=== PATIENT | male | born 1975 | race Caucasian/White ===

== ENCOUNTER 2016-05-11 08:35 | Emergency (ER) | payer OTHER ==
[2016-05-11] MEDS ORDERED: ONDANSETRON 4 MG ORAL DISINTEGRATING TAB (S0181) As Ordered ONE (09:10)
[2016-05-11] MEDS ORDERED: IBUPROFEN 600 MG TAB As Ordered ONE (09:11)
[2016-05-11] MEDS ORDERED: ACETAMINOPHEN 325 MG TAB As Ordered ONE (09:11)
--- NOTE | 2016-05-11 09:31 | REP ---
CT Head without contrast HISTORY: Headache COMPARISON: None There is no intraparenchymal hemorrhage, acute infarct, mass or midline shift. The ventricular system is normal in appearance. There is no extra cerebral collection. There is no fracture. The visualized sinuses are clear. IMPRESSION: There is no intracranial lesion. Signed by Jean Sellers MD 05/11/2016 09:22 A
--- NOTE | 2016-05-11 09:54 | EDDOCDS ---
Physician Documentation [facility] Name: Giles Rich Age: 40 yrs Sex: Male : 1975 Arrival Date: 05/11/2016 Time: 08:35 Bed I2 / M2 Private MD: Disposition: 05/11/16 09:46 Discharged to Home/Self Care. Impression: Headache, Nausea. - Condition is Stable. - Discharge Instructions: General Headache Without Cause, Nausea, Adult. - Prescriptions for ZOFRAN ODT 4 mg Oral - dissolve 1 tablet by ORAL route 3-4 times daily As needed do not chew, do not swallow whole; 10 tablet. - Medication Reconciliation, Local Pharmacy Hours form. - Follow up: Emergency Department; When: As needed; Reason: Worsening of conditions. Follow up: THIEN Javed; When: Call to arrange an appointment; Reason: Wound/Symptom Recheck, Recheck today's complaints, Continuance of care. - Problem is new. - Symptoms are unchanged. - Notes: YOUR CT SCAN DID NOT SHOW ANY ABNORMALITIES. PLEASE FOLLOW UP WITH YOUR PRIMARY CARE PROVIDER IN THE NEXT FEW DAYS TO RECHECK YOUR SYMPTOMS. TYLENOL/MOTRIN DIRECTED FOR PAIN. Historical: - Allergies: Amoxicillin; - Home Meds: 1. none - PMHx: none; - PSHx: none; - Social history: Smoking status: Patient states was never smoker of tobacco. No barriers to communication noted, The patient speaks fluent [place] Citizen, Speaks appropriately for age. - Family history: Not pertinent. - : The pt / caregiver states he / she is not on anticoagulants. Home medication list is obtained from the patient. - Exposure Risk Screening:: None identified. Vital Signs: 05/11 08:46 BP 138 / 84; Pulse 80; Resp 16; Temp 98.2(TE); Pulse Ox 97% on R/A; Weight 86.18 kg / mlb1 189.99 lbs (R); Height 5 ft. 9 in. (175.26 cm) (R); Pain 6/10; 09:51 BP 124 / 74; Pulse 70; Resp 16; Temp 97.3(O); jmk 08:46 Body Mass Index 28.06 (86.18 kg, 175.26 cm) mlb1 MDM: 09:06 Acetaminophen Tablet 975 mg PO once ordered. dt4 09:06 Ibuprofen 600 mg PO once; GIVE WITH FOOD, THANK YOU. ordered. dt4 09:06 Ondansetron ODT Oral Disintegrating Tablet 4 mg PO once ordered. dt4 09:06 CT Head Without Contrast Ordered. EDMS 09:24 Financial registration complete. 09:29 [facility] Payment Agreement was scanned into [employer] and attached to record. lg Administered Medications: 09:20 Drug: Acetaminophen 975 mg [acetaminophen 325 mg tablet (3 tabs)] Route: PO; jmk 09:20 Drug: Ibuprofen 600 mg [ibuprofen 600 mg tablet (1 tabs)] Route: PO; ina 09:20 Drug: Ondansetron ODT 4 mg [ondansetron 4 mg disintegrating tablet (1 tabs)] Route: PO; ina Signatures: Dispatcher [employer] EDMS Dwayne Astorga,RN RN Charmaine Dowd, Tobias Reg lg Van Tejeda RN RN mlb1 Jaleesa Olivera PA-C PAWhitley dt4 The chart was reviewed and I authenticate all verbal orders and agree with the evaluation and treatment provided.Attachments: 09:29 [facility] Payment Agreement lg MTDD
--- NOTE | 2016-05-11 09:54 | EDDOCDS ---
Nurse's Notes [facility] Name: Giles Rich Age: 40 yrs Sex: Male : 1975 Arrival Date: 05/11/2016 Time: 08:35 Bed I2 / M2 Private MD: Diagnosis: Headache;Nausea Presentation: 05/11 08:42 Presenting complaint: Patient states: "Pretty steady" headache for the past couple mlb1 weeks intermittent nausea. This patient has no additional risk factors. Adult Sepsis Screening: The patient does not have new or worsening altered mentation. Patient's respiratory rate is less than 22. Systolic blood pressure is greater than 100. Patient has a qSOFA score of 0- Negative Sepsis Screen. Suicide/Homicide risk assessment- the patient denies having any suicidal and/or homicidal ideations and does not present with any other emotional, behavioral or mental health complaints. 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 Transition of care: patient was not received from another setting of care. 08:42 Acuity: HASEEB Level 4 mlb1 08:42 Method Of Arrival: Walkin/Carried/Asstd mlb1 Triage Assessment: 08:44 Headache History: This patient does not have a history of previous headaches. General: mlb1 Appears in no apparent distress, Behavior is appropriate for age, cooperative. Pain: Location: head Pain currently is 6 out of 10 on a pain scale. Also complains of nausea. Pt Declines HIV testing. Neurological: No deficits noted. Historical: - Allergies: Amoxicillin; - Home Meds: 1. none - PMHx: none; - PSHx: none; - Social history: Smoking status: Patient states was never smoker of tobacco. No barriers to communication noted, The patient speaks fluent Serbian, Speaks appropriately for age. - Family history: Not pertinent. - : The pt / caregiver states he / she is not on anticoagulants. Home medication list is obtained from the patient. - Exposure Risk Screening:: None identified. Screenin:55 Screening information is obtained from the patient. Fall risk: No risks identified. jmk Assistance ADL's: requires no assistance with activities of daily living. Abuse/DV Screen: The patient / caregiver reports he/she is: not in a situation that causes fear, pain or injury. Nutritional screening: No deficits noted. Advance Directives: Currently, there is no health care proxy. There is no active DNR order. There is a living will, There is no Power of Parent Partner. home support is adequate. Assessment: 08:54 General: Appears in no apparent distress. Neurological: Level of Consciousness is jmk awake, alert, Oriented to person, place, time, Denies weakness blurred vision dizziness, numbness photophobia. Cardiovascular: No deficits noted. Respiratory: No deficits noted. GI: No deficits noted. 09:51 General: Appears states pian is unchanged. remains neuro intact.. Pain: Pain currently jmk is 6 out of 10 on a pain scale. Vital Signs: 08:46 BP 138 / 84; Pulse 80; Resp 16; Temp 98.2(TE); Pulse Ox 97% on R/A; Weight 86.18 kg mlb1 (R); Height 5 ft. 9 in. (175.26 cm) (R); Pain 6/10; 09:51 BP 124 / 74; Pulse 70; Resp 16; Temp 97.3(O); jmk 08:46 Body Mass Index 28.06 (86.18 kg, 175.26 cm) [facility] Vitals: 08:46 Log In Time: May 11, 2016 at 08:30. b1 ED Course: 08:36 Patient visited by Charmaine Copeland Reg. lg 08:36 Patient moved to Waiting lg 08:42 Patient visited by Van Tejeda, RN. mlb1 08:44 Triage Initiated mlb1 08:47 Patient visited by Van Tejeda, RN. mlb1 08:48 Patient moved to / M2 mlb1 08:52 [facility] dt4 08:52 Reba oSuza MD is Attending Physician. dt4 08:52 Patient visited by Jaleesa Olivera PA-C. dt4 09:29 [facility] Payment Agreement was scanned into [employer] and attached to record. lg 09:45 Tegan [facility] is Referral Physician. dt4 09:51 The patient / caregiver is instructed regarding the plan of care and ED course. jmk 09:51 No IV's were initiated during this patient's visit. No procedures done that require k assistance. Administered Medications: 09:20 Drug: Acetaminophen 975 mg [acetaminophen 325 mg tablet (3 tabs)] Route: PO; ina 09:20 Drug: Ibuprofen 600 mg [ibuprofen 600 mg tablet (1 tabs)] Route: PO; danilok 09:20 Drug: Ondansetron ODT 4 mg [ondansetron 4 mg disintegrating tablet (1 tabs)] Route: PO; k Order Results: There are currently no results for this order. Outcome: 09:46 Discharge ordered by Provider. dt4 09:51 Discharge Assessment: Patient awake, alert and oriented x 3. No cognitive and/or jmk functional deficits noted. Patient verbalized understanding of disposition instructions. patient administered narcotics - no. The following High Risk Discharge criteria are identified: None. Discharged to home ambulatory. Condition: good. Discharge instructions given to patient, Instructed on discharge instructions, follow up and referral plans. medication usage, Demonstrated understanding of instructions, medications, Pt was receptive of discharge instructions/ teaching. CT Study completed. Property :Personal belongings accompany Pt. 09:53 Patient left the ED. ina Signatures: Dwayne Astorga,RN RN Charmaine Dowd Reg Reg lg Barney, Michael B RN RN mlJaleesa Rayo, PA-C PA-C dt4 VALERIE
--- NOTE | 2016-05-13 10:54 | EDDOCDS ---
Physician Documentation [facility] Name: Giles Rich Age: 40 yrs Sex: Male : 1975 Arrival Date: 05/11/2016 Time: 08:35 Bed I2 / M2 Private MD: Disposition: 05/11/16 09:46 Discharged to Home/Self Care. Impression: Headache, Nausea. - Condition is Stable. - Discharge Instructions: General Headache Without Cause, Nausea, Adult. - Prescriptions for ZOFRAN ODT 4 mg Oral - dissolve 1 tablet by ORAL route 3-4 times daily As needed do not chew, do not swallow whole; 10 tablet. - Medication Reconciliation, Local Pharmacy Hours form. - Follow up: Emergency Department; When: As needed; Reason: Worsening of conditions. Follow up: THI[facility] Javed; When: Call to arrange an appointment; Reason: Wound/Symptom Recheck, Recheck today's complaints, Continuance of care. - Problem is new. - Symptoms are unchanged. - Notes: YOUR CT SCAN DID NOT SHOW ANY ABNORMALITIES. PLEASE FOLLOW UP WITH YOUR PRIMARY CARE PROVIDER IN THE NEXT FEW DAYS TO RECHECK YOUR SYMPTOMS. TYLENOL/MOTRIN DIRECTED FOR PAIN. Historical: - Allergies: Amoxicillin; - Home Meds: 1. none - PMHx: none; - PSHx: none; - Social history: Smoking status: Patient states was never smoker of tobacco. No barriers to communication noted, The patient speaks fluent [place], Speaks appropriately for age. - Family history: Not pertinent. - : The pt / caregiver states he / she is not on anticoagulants. Home medication list is obtained from the patient. - Exposure Risk Screening:: None identified. Vital Signs: 05/11 08:46 BP 138 / 84; Pulse 80; Resp 16; Temp 98.2(TE); Pulse Ox 97% on R/A; Weight 86.18 kg / mlb1 189.99 lbs (R); Height 5 ft. 9 in. (175.26 cm) (R); Pain 6/10; 09:51 BP 124 / 74; Pulse 70; Resp 16; Temp 97.3(O); jmk 08:46 Body Mass Index 28.06 (86.18 kg, 175.26 cm) mlb1 MDM: 09:06 Acetaminophen Tablet 975 mg PO once ordered. dt4 09:06 Ibuprofen 600 mg PO once; GIVE WITH FOOD, THANK YOU. ordered. dt4 09:06 Ondansetron ODT Oral Disintegrating Tablet 4 mg PO once ordered. dt4 09:06 CT Head Without Contrast Ordered. EDMS : Financial registration complete. : [facility] Payment Agreement was scanned into [email or web address] and attached to record. 05/13 08:56 T-Sheet-- Draft Copy was scanned into [email or web address] and attached to record. lg Administered Medications: 05/11 09:20 Drug: Acetaminophen 975 mg [acetaminophen 325 mg tablet (3 tabs)] Route: PO; jmk 09:20 Drug: Ibuprofen 600 mg [ibuprofen 600 mg tablet (1 tabs)] Route: PO; ina 09:20 Drug: Ondansetron ODT 4 mg [ondansetron 4 mg disintegrating tablet (1 tabs)] Route: PO; ina Signatures: Dispatcher [employer] EDOK Dwayne Astorga RN RN Charmaine Dowd, Reg Reg Van Tejeda RN RN mlb1 Jaleesa Olivera, PA-C PAAnisaC dt4 The chart was reviewed and I authenticate all verbal orders and agree with the evaluation and treatment provided.Attachments: : [facility] Payment Agreement lg 05/13 08:56 T-Sheet-- Draft Copy lg Chart Complete MTDD
--- NOTE | 2016-05-13 10:54 | EDDOCDS ---
Physician Documentation [facility] Name: Giles Rich Age: 40 yrs Sex: Male : 1975 Arrival Date: 05/11/2016 Time: 08:35 Bed I2 / M2 Private MD: Disposition: 05/11/16 09:46 Discharged to Home/Self Care. Impression: Headache, Nausea. - Condition is Stable. - Discharge Instructions: General Headache Without Cause, Nausea, Adult. - Prescriptions for ZOFRAN ODT 4 mg Oral - dissolve 1 tablet by ORAL route 3-4 times daily As needed do not chew, do not swallow whole; 10 tablet. - Medication Reconciliation, Local Pharmacy Hours form. - Follow up: Emergency Department; When: As needed; Reason: Worsening of conditions. Follow up: THIEN Javed; When: Call to arrange an appointment; Reason: Wound/Symptom Recheck, Recheck today's complaints, Continuance of care. - Problem is new. - Symptoms are unchanged. - Notes: YOUR CT SCAN DID NOT SHOW ANY ABNORMALITIES. PLEASE FOLLOW UP WITH YOUR PRIMARY CARE PROVIDER IN THE NEXT FEW DAYS TO RECHECK YOUR SYMPTOMS. TYLENOL/MOTRIN DIRECTED FOR PAIN. Historical: - Allergies: Amoxicillin; - Home Meds: 1. none - PMHx: none; - PSHx: none; - Social history: Smoking status: Patient states was never smoker of tobacco. No barriers to communication noted, The patient speaks fluent Iranian, Speaks appropriately for age. - Family history: Not pertinent. - : The pt / caregiver states he / she is not on anticoagulants. Home medication list is obtained from the patient. - Exposure Risk Screening:: None identified. Vital Signs: 05/11 08:46 BP 138 / 84; Pulse 80; Resp 16; Temp 98.2(TE); Pulse Ox 97% on R/A; Weight 86.18 kg / mlb1 189.99 lbs (R); Height 5 ft. 9 in. (175.26 cm) (R); Pain 6/10; 09:51 BP 124 / 74; Pulse 70; Resp 16; Temp 97.3(O); jmk 08:46 Body Mass Index 28.06 (86.18 kg, 175.26 cm) mlb1 MDM: 09:06 Acetaminophen Tablet 975 mg PO once ordered. dt4 09:06 Ibuprofen 600 mg PO once; GIVE WITH FOOD, THANK YOU. ordered. dt4 09:06 Ondansetron ODT Oral Disintegrating Tablet 4 mg PO once ordered. dt4 09:06 CT Head Without Contrast Ordered. EDMS : Financial registration complete. : [facility] Payment Agreement was scanned into [employer] and attached to record. 05/13 08:56 T-Sheet-- Draft Copy was scanned into [employer] and attached to record. lg Administered Medications: 05/11 09:20 Drug: Acetaminophen 975 mg [acetaminophen 325 mg tablet (3 tabs)] Route: PO; jmk 09:20 Drug: Ibuprofen 600 mg [ibuprofen 600 mg tablet (1 tabs)] Route: PO; ina 09:20 Drug: Ondansetron ODT 4 mg [ondansetron 4 mg disintegrating tablet (1 tabs)] Route: PO; ina Signatures: Dispatcher [employer] EDMT Dwayne Astorga RN RN Charmaine Dowd, Reg Reg Van Tejeda RN RN mlb1 Jaleesa Olivera, PA-C PAAnisaC dt4 The chart was reviewed and I authenticate all verbal orders and agree with the evaluation and treatment provided.Attachments: : [facility] Payment Agreement lg 05/13 08:56 T-Sheet-- Draft Copy lg Chart Complete MTDD
--- NOTE | 2016-05-13 10:54 | EDDOCDS ---
Nurse's Notes [facility] Name: Giles Rich Age: 40 yrs Sex: Male : 1975 Arrival Date: 05/11/2016 Time: 08:35 Bed I2 / M2 Private MD: Diagnosis: Headache;Nausea Presentation: 05/11 08:42 Presenting complaint: Patient states: "Pretty steady" headache for the past couple mlb1 weeks intermittent nausea. This patient has no additional risk factors. Adult Sepsis Screening: The patient does not have new or worsening altered mentation. Patient's respiratory rate is less than 22. Systolic blood pressure is greater than 100. Patient has a qSOFA score of 0- Negative Sepsis Screen. Suicide/Homicide risk assessment- the patient denies having any suicidal and/or homicidal ideations and does not present with any other emotional, behavioral or mental health complaints. 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 Transition of care: patient was not received from another setting of care. 08:42 Acuity: HASEEB Level 4 mlb1 08:42 Method Of Arrival: Walkin/Carried/Asstd mlb1 Triage Assessment: 08:44 Headache History: This patient does not have a history of previous headaches. General: mlb1 Appears in no apparent distress, Behavior is appropriate for age, cooperative. Pain: Location: head Pain currently is 6 out of 10 on a pain scale. Also complains of nausea. Pt Declines HIV testing. Neurological: No deficits noted. Historical: - Allergies: Amoxicillin; - Home Meds: 1. none - PMHx: none; - PSHx: none; - Social history: Smoking status: Patient states was never smoker of tobacco. No barriers to communication noted, The patient speaks fluent [place]serrat[place], Speaks appropriately for age. - Family history: Not pertinent. - : The pt / caregiver states he / she is not on anticoagulants. Home medication list is obtained from the patient. - Exposure Risk Screening:: None identified. Screenin:55 Screening information is obtained from the patient. Fall risk: No risks identified. jmk Assistance ADL's: requires no assistance with activities of daily living. Abuse/DV Screen: The patient / caregiver reports he/she is: not in a situation that causes fear, pain or injury. Nutritional screening: No deficits noted. Advance Directives: Currently, there is no health care proxy. There is no active DNR order. There is a living will, There is no Power of Client Experience Consultant. home support is adequate. Assessment: 08:54 General: Appears in no apparent distress. Neurological: Level of Consciousness is jmk awake, alert, Oriented to person, place, time, Denies weakness blurred vision dizziness, numbness photophobia. Cardiovascular: No deficits noted. Respiratory: No deficits noted. GI: No deficits noted. 09:51 General: Appears states pian is unchanged. remains neuro intact.. Pain: Pain currently jmk is 6 out of 10 on a pain scale. Vital Signs: 08:46 BP 138 / 84; Pulse 80; Resp 16; Temp 98.2(TE); Pulse Ox 97% on R/A; Weight 86.18 kg mlb1 (R); Height 5 ft. 9 in. (175.26 cm) (R); Pain 6/10; 09:51 BP 124 / 74; Pulse 70; Resp 16; Temp 97.3(O); jmk 08:46 Body Mass Index 28.06 (86.18 kg, 175.26 cm) [facility] Vitals: 08:46 Log In Time: May 11, 2016 at 08:30. b1 ED Course: 08:36 Patient visited by Charmaine Copeland Reg. lg 08:36 Patient moved to Waiting lg 08:42 Patient visited by Van Tejeda, RN. mlb1 08:44 Triage Initiated mlb1 08:47 Patient visited by Van Tejeda, RN. mlb1 08:48 Patient moved to / M2 mlb1 08:52 Jaleesa Olivera [facility]C [facility] dt4 08:52 Reba Souza MD is Attending Physician. dt4 08:52 Patient visited by Jaleesa Olivera PA-C. dt4 09:29 [facility] Payment Agreement was scanned into [employer] and attached to record. lg 09:[address] [facility] is Referral Physician. dt4 09:51 The patient / caregiver is instructed regarding the plan of care and ED course. jmk 09:51 No IV's were initiated during this patient's visit. No procedures done that require k assistance. 10:09 CT Head Without Contrast Returned. EDMS 05/13 08:56 T-Sheet-- Draft Copy was scanned into [employer] and attached to record. lg Administered Medications: 05/11 09:20 Drug: Acetaminophen 975 mg [acetaminophen 325 mg tablet (3 tabs)] Route: PO; ina 09:20 Drug: Ibuprofen 600 mg [ibuprofen 600 mg tablet (1 tabs)] Route: PO; ina 09:20 Drug: Ondansetron ODT 4 mg [ondansetron 4 mg disintegrating tablet (1 tabs)] Route: PO; ina Order Results: Radiology Order: CT Head Without Contrast Test: CT Head Without Contrast REASON FOR EXAMINATION: [place], HX OF CONCUSSION TBI; CT Head without contrast; ; HISTORY: Headache; ; COMPARISON: None; ; There is no intraparenchymal hemorrhage, acute infarct, mass or midline shift.; The ventricular system is normal in appearance. There is no extra cerebral; collection. There is no fracture. The visualized sinuses are clear.; ; IMPRESSION: There is no intracranial lesion.; ; ; ; ; Signed by; Jean Sellers MD 05/11/2016 09:22 A; Outcome: 09:46 Discharge ordered by Provider. dt4 09:51 Discharge Assessment: Patient awake, alert and oriented x 3. No cognitive and/or k functional deficits noted. Patient verbalized understanding of disposition instructions. patient administered narcotics - no. The following High Risk Discharge criteria are identified: None. Discharged to home ambulatory. Condition: good. Discharge instructions given to patient, Instructed on discharge instructions, follow up and referral plans. medication usage, Demonstrated understanding of instructions, medications, Pt was receptive of discharge instructions/ teaching. CT Study completed. Property :Personal belongings accompany Pt. 09:53 Patient left the ED. ina Signatures: Dispatcher [employer] EDMS Dwayne Astorga,RN RN Charmaine Dowd, Van Arriaga lg RN RN mlb1 Jaleesa Olivera PA-C PA-C dt4 Chart Complete MTDD
== END 2016-05-11 09:53 | disposition home or self-care (01) ==
LOC: EDSEX 08:35 → M ED 08:35
DX: R51 Headache (principal); R11.0 Nausea; Z88.0 Allergy status to penicillin

== ENCOUNTER 2016-10-31 23:48 | Emergency (ER) | payer OTHER ==
[~2016-10-31] VITALS: Ht 182.9 cm; Wt 85.9 kg
[2016-10-31 23:49] VITALS: BP 111/83
[2016-11-01] MEDS ORDERED: TOPI100T9 (00:17)
[2016-11-01] MEDS ORDERED: TRAM50TA2 (00:17)
== END 2016-11-01 02:34 | disposition left against medical advice (07) ==
LOC: M ED 23:48
DX: M54.2 Cervicalgia (principal); R51 Headache; Z53.21 Procedure and treatment not carried out due to patient leaving prior to being seen by health care provider

== ENCOUNTER 2016-12-22 06:49 | Emergency (ER) | payer OTHER ==
[~2016-12-22] VITALS: Ht 180.3 cm; Wt 88.6 kg
[~2016-12-22 06:49] MED LIST: TOPI100T9; TRAM50TA2
[2016-12-22] MEDS ORDERED: TRAZ50TA11 PO (06:57)
[2016-12-22] MEDS ORDERED: NS 1,000 ML IV ONE (07:30)
[2016-12-22] MEDS ORDERED: METOCLOPRAMIDE INJ 10MG/2ML VIAL (J2765) IV ONE (07:30)
[2016-12-22] MEDS ORDERED: diphenhydrAMINE INJ 50MG/ML VIAL (J1200) IV ONE (07:30)
[2016-12-22] MEDS ORDERED: KETOROLAC 30 MG/ML VIAL (J1885) IV ONE (07:30)
[2016-12-22 09:01] VITALS: BP 110/67
== END 2016-12-22 09:05 | disposition home or self-care (01) ==
LOC: M ED 06:49
DX: R51 Headache (principal); M54.2 Cervicalgia; Z87.820 Personal history of traumatic brain injury; Z79.899 Other long term (current) drug therapy; Z88.0 Allergy status to penicillin
CPT/HCPCS: 96361; 96374; 96375; 99283; J1200; J1885; J2765; J3360

== ENCOUNTER 2019-07-05 07:43 | Inpatient (IN) | payer BC, OTHER ==
[~2019-07-05] VITALS: Ht 177.8 cm; Wt 93.4 kg
[~2019-07-05 07:43] MED LIST changes: +TRAZ-252 PO
[2019-07-05] MEDS ORDERED: NS 1,000 ML IV ONE (08:15)
[2019-07-05] MEDS ORDERED: LORazepam 2 MG/ML VIAL (J2060) IV STA ×2 (08:23→10:32)
[2019-07-05] MEDS ORDERED: PROZ20CA11 PO (08:53)
[2019-07-05] MEDS ORDERED: NEUR600T PO (08:53)
[2019-07-05 09:11] LABS: BASO % 0.3 % (0.0-1.0); EOS % 0.2 % (0.0-3.0); HEMATOCRIT 49.2 % (42.0-52.0); HEMOGLOBIN 16.2 g/dl (13.5-17.5); LYMPH # 1.4 10^3/uL (1.5-5.0); LYMPH % 10.6 % (24.0-44.0); MEAN CORPUSCULAR HEMOGLOBIN 27.7 pg (27.0-33.0); MEAN CORPUSCULAR HGB CONC 32.9 g/dl (32.0-36.5); MEAN CORPUSCULAR VOLUME 84.1 fl (80.0-96.0); MONO # 0.7 10^3/uL (0.0-0.8); MONO % 4.9 % (0.0-5.0); NEUTROPHILS # 11.3 10^3/uL (1.5-8.5); NEUTROPHILS % 83.5 % (36.0-66.0); PLATELET COUNT, AUTOMATED 361 10^3/uL (150-450); RED BLOOD COUNT 5.85 10^6/uL (4.30-6.10); WHITE BLOOD COUNT 13.6 10^3/uL (4.0-10.0)
--- NOTE | 2019-07-05 09:17 | REP ---
REASON: Drug overdose. FINDINGS: The technique utilized in obtaining the radiograph has magnified the cardiac silhouette and accentuated the interstitial markings. The superior mediastinal structures are midline. The cardiac silhouette is unremarkable in size, shape, and position. The diaphragmatic surfaces of the lungs are regular, and the costophrenic angles are clear. The pulmonary hsu are clear. The imaged osseous structures are intact. IMPRESSION: There is no acute cardiopulmonary disease. Electronically Signed by Jose D Salinas DO 07/05/2019 10:32 A
[2019-07-05 09:18] LABS: INR 1.15; PROTHROMBIN TIME 14.4 SECONDS (11.8-14.0)
[2019-07-05 09:19] LABS: PARTIAL THROMBOPLASTIN TIME 26.8 SECONDS (25.0-38.4)
[2019-07-05 09:21] LABS: D-DIMER QUANT 305.26 ng/ml (<500)
[2019-07-05 09:21] LABS: CK-MB VALUE MASS 3.5 NG/ML (<3.6); CPK CREATINE PHOSPHOKINASE 330 U/L (39-308); FERRITIN 9 NG/ML (26-388); LDH LACTATE DEHYDROGENASE 177 U/L (87-241); MB/CK RELATIVE INDEX 1.06 (< OR =4); TROPONIN I < 0.02 NG/ML (< 0.10)
[2019-07-05 09:27] LABS: ALT/SGPT 43 U/L (12-78); BILIRUBIN,TOTAL 0.5 MG/DL (0.2-1.0); BLOOD UREA NITROGEN 16 MG/DL (7-18); CALCIUM LEVEL 8.5 MG/DL (8.5-10.1); CARBON DIOXIDE LEVEL 23 MEQ/L (21-32); CHLORIDE LEVEL 110 MEQ/L (98-107); CPK CREATINE PHOSPHOKINASE 348 U/L (39-308); CREATININE FOR GFR 0.84 MG/DL (0.70-1.30); GLOMERULAR FILTRATION RATE > 60.0 (>60); GLUCOSE, FASTING 88 MG/DL (70-100); SODIUM LEVEL 140 MEQ/L (136-145)
[2019-07-05 09:28] LABS: ACETAMINOPHEN LEVEL < 2.0 UG/ML (10.0-30.0); ALBUMIN 3.7 GM/DL (3.2-5.2); BILIRUBIN,DIRECT 0.1 MG/DL (0.0-0.2); ETHYL ALCOHOL (ETHANOL) < 0.003 % (0.000-0.010); SALICYLATE LEVEL < 1.7 MG/DL (5.0-30.0); TOTAL PROTEIN 7.3 GM/DL (6.4-8.2)
[2019-07-05 09:29] LABS: AMPHETAMINES LEVEL URINE NEGATIVE (NEGATIVE); BARBITURATES URINE NEGATIVE (NEGATIVE); BENZODIAZEPINES URINE NEGATIVE (NEGATIVE); CANNABINOIDS URINE NEGATIVE (NEGATIVE); COCAINE METABOLITE URINE NEGATIVE (NEGATIVE); METHADONE URINE NEGATIVE (NEGATIVE); OPIATES URINE NEGATIVE (NEGATIVE); PHENCYCLIDINE URINE NEGATIVE (NEGATIVE)
[2019-07-05] MEDS ORDERED: PRAZ1CAP PO (13:20)
[2019-07-05] MEDS ORDERED: MONT10TA4 PO (13:32)
[2019-07-05] MEDS ORDERED: PRAZ2CAP40 PO (13:32)
[2019-07-05] MEDS ORDERED: GABA-843 PO ×2 (13:32)
[2019-07-05] MEDS ORDERED: LORazepam 1 MG TAB PO STA (15:08)
[2019-07-05] MEDS ORDERED: MOM 30ML SUSPENSION UDC PO PRN (19:00)
[2019-07-05] MEDS ORDERED: MAALOX 30 ML SUSP *UDC PO PRN (19:00)
[2019-07-05] MEDS ORDERED: LORazepam 2 MG TAB PO PRN (19:00)
[2019-07-05] MEDS ORDERED: ACETAMINOPHEN TAB 650MG DOSE (2X325MG) PO PRN (19:00)
[2019-07-05] MEDS ORDERED: PRAZOSIN 1 MG CAP PO STA (20:47)
[2019-07-05] MEDS: THIAMINE 100 MG TAB PO SCH (21:00)
[2019-07-05] MEDS ORDERED: FLUoxetine 20 MG CAP PO ONE (21:00)
[2019-07-05 21:09] VITALS: BP 139/76
[2019-07-05] MEDS: traZODone 50 MG TAB PO PRN (21:50)
[2019-07-05 22:04] VITALS: BP_SYST 139; BP_SYST 142; BP_DIAS 73; BP_DIAS 76
[2019-07-05 22:08] VITALS: BP 142/73
[2019-07-05] MEDS: FOLIC ACID 1 MG TAB PO SCH (23:17)
[2019-07-05] MEDS: MULTIVITAMINS/MINERALS THERAP 1 TAB PO SCH (23:17)
--- NOTE | 2019-07-06 00:50 | ECGEPIP ---
[facility] - ED Test Date: 2019-07-05 Pat Name: KARTHIKEYAN ROWLEY Department: Room: - Gender: Male Senior Underwriter: christopher : 1975 Requested By: Toño Short Order Number: [id number] Reading MD: Ernesto Canales Measurements Intervals Mckean Rate: 90 P: 63 OK: 178 QRS: 43 QRSD: 90 T: 18 QT: 339 QTc: 417 Interpretive Statements SINUS RHYTHM NSTTW ABNORMALITIES NO PRIORS FOR COMPARISON Electronically Signed on 07-06-2019 0:49:35 EDT by Ernesto Canales
[2019-07-06] MEDS: hydrOXYzine 50 MG TAB PO PRN ×2 (06:18→10:18)
[2019-07-06 06:27] VITALS: BP 144/70
[2019-07-06] MEDS: THIAMINE 100 MG TAB PO SCH (08:03)
[2019-07-06] MEDS: FOLIC ACID 1 MG TAB PO SCH (08:03)
[2019-07-06] MEDS: MULTIVITAMINS/MINERALS THERAP 1 TAB PO SCH (08:03)
--- NOTE | 2019-07-06 10:16 | HPEPDOC ---
[facility] Medical History & Physical Date of Admission Jul 06, 2019 Date of Service: Jul 06, 2019 Attending Physician: SERINA GUTIERREZ MD History and Physical CHIEF COMPLAINT: Admitted to inpatient mental health unit for suicidal ideation HISTORY OF PRESENT ILLNESS: 43-year-old male with past medical history of depression, anxiety, PTSD, TBI and chronic pain is admitted to inpatient mental health unit for suicidal ideation. Patient reports increased stress, anxiety and worsening PTSD for the past few days, which have made him augmentative with fleeting thoughts of suicide. He was able to determine that he needed help and has his to bring him to the hospital. Patient reports feeling a little better since coming to the hospital. He has no medical problems, does not take any medications other than his psych/pain meds. He denies any shortness of breath, chest pain, nausea, vomiting, abdominal pain, diarrhea or constipation. 10 point review of system is negative except for above PAST MEDICAL HISTORY: 1. PTSD. 2. Depression. 3. Anxiety. 4. Traumatic Brain injury. 5. Chronic back pain PAST SURGICAL HISTORY: 1. Multiple back surgeries. SOCIAL HISTORY: Previous smoker. Denies alcohol use. Denies drug use FAMILY HISTORY: Mother with multiple medical issues including diabetes mellitus and heart disease ALLERGIES: Please see below. HOME MEDICATIONS: Please see below. PHYSICAL EXAMINATION: VITAL SIGNS: Please see below. GENERAL: No distress HEENT: Normocephalic, atraumatic, moist mucous membranes NECK: Supple CARDIOVASCULAR EXAMINATION: S1, S2, no murmurs RESPIRATORY EXAMINATION: Clear to auscultation, no wheezing ABDOMINAL EXAMINATION: Soft, nontender, nondistended, positive bowel sounds EXTREMITIES: Range of motion intact SKIN: No rash NEUROLOGICAL EXAMINATION: Alert and oriented 3, no focal deficits PSYCHIATRIC EXAMINATION: Calm and cooperative LABORATORY DATA: See below. MICROBIOLOGY: Please see below. ASSESSMENT: 43-year-old male with past medical history of anxiety/depression, PTSD and chronic pain is admitted to inpatient mental health unit for suicidal ideation. PLAN: 1. Suicidal ideation. Management per primary team, along with other psych issues. Labs and imaging reviewed, within normal limits Patient has no active medical issues at this time, please reconsult as needed. Vital Signs Vital Signs Date Time Temp Pulse Resp B/P (MAP) Pulse Ox O2 Delivery O2 Flow Rate FiO2 07/06/19 06:27 97.5 60 18 144/70 (94) 97 Room Air Home Medications Scheduled Fluoxetine HCl (Prozac) 20 Mg Capsule, 40 MG PO QHS Gabapentin (Gabapentin) 300 Mg Capsule, 300 MG PO BID Gabapentin (Gabapentin) 300 Mg Capsule, 600 MG PO QHS Montelukast Sodium (Montelukast Sodium) 10 Mg Tablet, 10 MG PO QHS Prazosin HCl (Prazosin HCl) 2 Mg Capsule, 8 MG PO QHS Allergies Coded Allergies: amoxicillin (Verified Allergy, Unknown, difficulty breathing , 07/05/19) A-FIB/CHADSVASC A-FIB History Current/History of A-Fib/PAF?: No SERINA GUTIERREZ MD Jul 06, 2019 10:16
[2019-07-06] MEDS: QUEtiapine FUMARATE 25 MG TAB PO PRN (12:28)
[2019-07-06 16:15] VITALS: BP 134/67
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
[2019-07-06] MEDS: QUEtiapine FUMARATE 50 MG TAB PO SCH (20:22)
[2019-07-06] MEDS: traZODone 50 MG TAB PO PRN (20:22)
[2019-07-06] MEDS: FLUoxetine 20 MG CAP PO SCH (21:25)
[2019-07-07 06:48] VITALS: BP 112/67
[2019-07-07] MEDS: QUEtiapine FUMARATE 25 MG TAB PO PRN (08:07)
[2019-07-07] MEDS: MULTIVITAMINS/MINERALS THERAP 1 TAB PO SCH (08:07)
[2019-07-07 16:09] VITALS: BP 120/63
[2019-07-07] MEDS: QUEtiapine FUMARATE 50 MG TAB PO SCH (20:04)
[2019-07-07] MEDS: FLUoxetine 20 MG CAP PO SCH (20:05)
--- NOTE | 2019-07-08 06:39 | MHIPN ---
DATE: 07/07/2019 The patient, today, states, "I'm doing pretty decent." He slept good, and he said he had not slept good for a very long time. He really feels that starting on the Seroquel 50 mg at bedtime helped him sleep, and also he is taking the 25 mg this morning and states "I feel more relaxed today." He said he spoke with his and the kids and he recognizes that he needs this time to be with his own thoughts and to try to work on himself. He says that the is supportive. MENTAL STATUS EXAMINATION: He is alert and oriented times three. Eye contact is good. He is verbally spontaneous. There is no formal thought disorder. His mood is "pretty decent." Affect is appropriate to mood. He is not psychotic. He denies suicidal, homicidal ideations. Concentration is fair. Memory is intact. Insight and judgment fair. DIAGNOSES: Unspecified depressive disorder and unspecified anxiety disorder. TREATMENT PLAN: At this point, the patient will continue to be monitored for continued resolution of suicidal ideations and continued stabilization of his mood and we will continue to titrate his medications as indicated.
[2019-07-08 06:44] VITALS: BP 130/74
[2019-07-08] MEDS: MULTIVITAMINS/MINERALS THERAP 1 TAB PO SCH (08:15)
--- NOTE | 2019-07-08 09:23 | MHDSPDOC ---
[facility] Discharge Summary Discharge Summary DATE OF ADMISSION: Jul 05, 2019 at 18:57 DATE OF DISCHARGE:07/08/19 Discharge Giles Rich MRN: [id number] Date of : N/A Date of Service: 07/08/2019 Diagnoses Unspecified depressive disorder. Unspecified anxiety disorder. Alcohol use disorder, mild. Unspecified trauma stress related disorder. History of Present Illness The patient a 43-year-old man was admitted after becoming concerned about various problems after reportedly texting a friend that he wanted to kill himself. He had been prescribed Neurontin for a year and subsequently had been taken off it quite quickly having restlessness and side effects made difficult for him to sleep and was admitted out of an abundance of caution on a voluntary status. Consultants Involved Hospitalist/PCP screening Treatment and Progress On The Unit The patient was admitted to the inpatient mental health unit and he was continued on his home Prozac 40 mg augmented with Seroquel 25 mg twice a day and 50 at bedtime. He did well and improved greatly on the medications. He primarily reported that he like the Seroquel at bedtime and had no behavioral problems, denying any suicidal and homicidal ideation while on the unit. He attended to treatment and did well with no notable problems. Discharge Assessment 43-year-old man with likely alcohol problems intermixed with long-term trauma as well as recent anxiety and depression possibly related to withdrawal from gabapentin, is treated appropriately, started on augmented Prozac with positive effects. The patient at the time of discharge did not meet criteria for involuntary adm ission/extension due to having a normal mental status exam, fair insight into the situation, They are engaged in the discharge process, as well as being friendly and amenable in behavioral control and havent been engaging in any observed concerning behavior or ideation recently. They decline voluntary extension/admission at this time and must be discharged in good purnima, as un able to make a case for holding the patient against their will. They may have historical risk factors of admissions and other interactions with psychiatry however, those are not modifiable from a clinical perspective. The patient will need to be discharged in good purnima. Mental Status Examination General: Well dressed with good hygiene Speech: Spontaneous and fluid Thought processes: Linear and logical MSK: Smooth and coordinated gait, no signs of tremors or involuntary orofacial movements Thought content: Future orientated Abstract reasoning, and computation: Intact Description of associations: Intact Description of abnormal or psychotic thoughts: Denies any suicidal or homicidal ideation. Denies any auditory or visual hallucinations. Does not appear to be responding to internal stimuli. Does not appear to be endorsing any bizarre or paranoid ideation. Judgment: fair Insight: fair Orientation: Alert and orientated 3 Cognition: Grossly normal Recent and remote memory: Intact Attention span and concentration: Intact Fund of knowledge: Adequate Mood: "okay" Affect: Euthymic with a full range Follow Up The social work team worked during the predischarge meeting in order to evaluate for further issues of lethality address them fully before discharge. They worked on safety planning with the patient's family members in order to ensure that the patient will have a safe and effective discharge. Patient's initially had some concerns and wanted the patient to stay longer in order to do rehab, after discussing with patient and offering patient further voluntary admission again for rehab, the patient declined stating that he felt that the environment made his PTSD symptoms/trauma symptoms worse. His became more understanding after we explained the limits of involuntary commitment and a safe plan was reengineered with her. Time Spent The amount of time spent in the coordination of care for this patient was approximately 45 minutes. Monday Vital Signs/I&Os Vital Signs Date Time Temp Pulse Resp B/P (MAP) Pulse Ox O2 Delivery O2 Flow Rate FiO2 07/08/19 06:44 97.5 78 14 130/74 (92) 99 Room Air Medications Scheduled Fluoxetine HCl (Prozac) 20 Mg Capsule, 40 MG PO QHS, (Reported) Montelukast Sodium (Montelukast Sodium) 10 Mg Tablet, 10 MG PO QHS, (Reported) Prazosin HCl (Prazosin HCl) 2 Mg Capsule, 8 MG PO QHS, (Reported) Quetiapine Fumarate (Quetiapine Fumarate) 50 Mg Tablet, 50 MG PO QHS for mood for 7 Days, #7 Allergies Coded Allergies: amoxicillin (Verified Allergy, Unknown, difficulty breathing , 07/05/19) KATHERIN ORTEZ DO Jul 08, 2019 09:23
[2019-07-08] MEDS ORDERED: QUET5TAB PO ×2 (10:24→10:28)
[2019-07-08 15:00] VITALS: BP 145/95
== END 2019-07-08 15:35 | disposition home or self-care (01) | DRG 754 ==
LOC: M ED 07:43 → M ED INP 18:57 → UNDOADMIN 19:29 → M PSY 21:22
PROVIDERS: ADMIT Psychiatry & Neurology Addiction Medicine; ATTEND Psychiatry & Neurology Addiction Medicine
DX: F32.9 Major depressive disorder, single episode, unspecified (principal); F41.9 Anxiety disorder, unspecified; F10.10 Alcohol abuse, uncomplicated; M54.5 Low back pain; Z79.899 Other long term (current) drug therapy; Z88.0 Allergy status to penicillin

== ENCOUNTER → 2021-12-21 | Outpatient (REF) ==
[~2021-12-21] MED LIST changes: +GABA-282 PO; +MONT10TA97 PO; +NEUR600T PO; +PRAZ1CAP PO; +PRAZ2CAP40 PO; +PROZ20CA11 PO; +QUET50TA4 PO
== END ==
LOC: M RAD 10:24
PROVIDERS: ATTEND Nurse Practitioner Family
DX: M50.122 Cervical disc disorder at C5-C6 level with radiculopathy (principal); R69 Illness, unspecified